=== PATIENT | female | born 1985 | race Two or more races ===

== ENCOUNTER 2023-10-16 14:10 | Emergency (ER) | payer MEDICAID, OTHER ==
[~2023-10-16] VITALS: Ht 167.6 cm; Wt 80.0 kg
[2023-10-16 14:50] LABS: Basophils # (auto) 0.1 10 ^3/uL (0-0.2); Basophils % (auto) 0.6 % (0.0-2.0); Eosinophils # (auto) 0.1 10 ^3/uL (0-0.8); Eosinophils % (auto) 0.7 % (0.0-7.0); Hematocrit 40.6 % (36.0-46.0); Hemoglobin 13.2 g/dL (12.2-16.2); Lymphocytes # (auto) 2.5 10 ^3/uL (0.4-5.4); Lymphocytes % (auto) 18.2 % (10.0-50.0); Mean Corpuscular Hemoglobin 27.9 pg (28.0-32.0); Mean Corpuscular Hgb Conc. 32.5 g/dL (32.0-36.0); Mean Corpuscular Volume 85.9 fL (80.0-100.0); Neutrophils # (auto) 10.2 10 ^3/uL (1.6-8.6); Neutrophils % (auto) 73.5 % (37.0-80.0); Nucleated Red Blood Cells % 0.1 %; Red Blood Cells 4.73 10^6/uL (4.0-5.20); Red Cell Distribution Width 14.6 % (11.8-14.3); White Blood Cell 13.9 10^3/uL (4.4-10.8)
[2023-10-16 15:06] LABS: Urine Amorphous Crystal MOD /hpf (None Seen); Urine Bacteria NONE SEEN /hpf (None Seen); Urine Blood 3+ /uL (Negative); Urine Clarity HAZY (Clear); Urine Color Yellow (Yellow); Urine Protein, UAD TRACE (Negative); Urine Specific Gravity 1.012 (1.001-1.035); Urine Urobilinogen Normal (Negative); Urine WBC 7 /hpf (0 - 5); Urine pH 8.5 (5.0-8.0)
[2023-10-16 15:08] LABS: Alanine Aminotransferase 90 U/L (7-40); Albumin 4.6 g/dL (3.2-4.8); Alkaline Phosphatase 129 U/L (46-116); Anion Gap 3 (5-15); Aspartate Aminotransferase 96 U/L (13-40); BUN/Creatinine Ratio 12.9 (10.0-20.0); Blood Urea Nitrogen 9 mg/dL (9-23); Calcium 10.1 mg/dL (8.7-10.4); Carbon Dioxide 28 mmol/L (20-30); Chloride 109 mmol/L (98-107); Glucose 101 mg/dL (74-106); Lipase 43 U/L (12-53); Potassium 3.9 mmol/L (3.5-5.1); Sodium 140 mmol/L (136-145)
[2023-10-16 15:09] LABS: Bilirubin, Total 0.7 mg/dL (0.2-1.0); Total Protein 7.3 g/dL (5.7-8.2)
[2023-10-16] MEDS ORDERED: CEPH250C PO (15:33)
[2023-10-16 16:30] VITALS: BP 127/79; PULSE 85; RESP 16; TEMP 98.8; O2SAT 100
[2023-10-16] MEDS: cefTRIAXone SOD 1,000 MG VL IM ONE (16:42)
== END 2023-10-16 16:44 | disposition home or self-care (01) ==
LOC: ER 14:10
DX: K80.20 Calculus of gallbladder without cholecystitis without obstruction (principal); N39.0 Urinary tract infection, site not specified
CPT/HCPCS: 36415; 74176; 80053; 81001; 83690; 85025; 96372; 99285; J0696